=== PATIENT | male | born 1955 | race African-American/Black ===

== ENCOUNTER 2018-05-06 08:44 | Emergency (ER) | payer MEDICAID ==
[~2018-05-06] VITALS: Ht 185.4 cm; Wt 85.0 kg
[2018-05-06] MEDS ORDERED: SODIUM CHLORIDE 0.9% 1,000 ML IV ONE (10:25)
[2018-05-06] MEDS ORDERED: HYDROCODONE/ACETAMINOPHEN 5/325MG TABLET PO ONE (10:30)
[2018-05-06] MEDS ORDERED: VANCOMYCIN 1 G PREMIX 200 ML IV ONE ×2 (10:30→18:45)
[2018-05-06] MEDS ORDERED: PIPERACILLIN/TAZ 3.375G PREMIX 50 ML IV ONE (10:30)
[2018-05-06] MEDS ORDERED: MORPHINE SULFATE 4 MG/ML CPJ (NOT FOR IM USE) IV ONE (12:00)
[2018-05-06 14:12] LABS: HEMATOCRIT. 33.7 % (42.0-52.0); HEMOGLOBIN. 11.1 g/dL (14.0-18.0); MEAN CORPUSCULAR HEMOGLOBIN 28.4 pg (28.0-32.0); MEAN CORPUSCULAR VOLUME 86.1 fL (80.0-94.0); MEAN PLATELET VOLUME 7.5 fl (7.4-10.4); PLATELET 423 x1000/uL (130-400); RED BLOOD CELL COUNT 3.92 mill/uL (4.7-6.1); RED CELL DISTRIBUTION WIDTH 15.1 % (11.6-14.6)
[2018-05-06 14:15] LABS: CHLORIDE 98 mEq/L (98-107)
[2018-05-06 14:39] LABS: PLATELET ESTIMATE INCREASED
[2018-05-06 15:01] LABS: INR 1.2; PROTHROMBIN TIME 12.1 sec (9.1-11.1)
[2018-05-07] MEDS ORDERED: MORPHINE SULFATE 4 MG/ML CPJ (NOT FOR IM USE) IV ONE (20:15)
[2018-05-08 01:50] VITALS: BP 129/72
== END 2018-05-08 02:05 | disposition short-term general hospital (02) ==
LOC: ER 08:44 → EDBEDREQ 13:59 → CANBEDREQ 14:12 → ER 05-08 02:05
DX: L02.416 Cutaneous abscess of left lower limb (principal); L03.116 Cellulitis of left lower limb; E86.0 Dehydration; D64.9 Anemia, unspecified
CPT/HCPCS: 36415; 71045; 73501; 80053; 83605; 85025; 85610; 87040; 87077; 93005; 96365; 96366; 96367; 96375; 99285; J2270; J2543; J3370; J7030